=== PATIENT | female | born 1970 | race Caucasian/White ===

== ENCOUNTER 2016-06-21 10:48 | Day surgery (SDC) | payer OTHER ==
[2016-06-21] MEDS ORDERED: IV START KIT ONE (10:52)
[2016-06-21] MEDS ORDERED: LACTATED RINGERS 1,000 ML ONE (10:52)
[2016-06-21] MEDS ORDERED: CEFAZOLIN SODIUM 2 GRAM PREMIX 100 ML IV ONE (10:53)
[2016-06-21] MEDS ORDERED: CEFAZOLIN SODIUM 2 GRAM PREMIX 100 ML IV PRN (11:00)
[2016-06-21] MEDS ORDERED: SCOPOLAMINE 1.5 MG/72 HR 1 EACH PATCH TD ONE (12:44)
[2016-06-21] MEDS ORDERED: MIDAZOLAM HCL 1 MG/ML 2ML VIAL ONE (13:21)
[2016-06-21] MEDS ORDERED: FENTANYL 5 ML ONE (13:21)
[2016-06-21] MEDS ORDERED: ROCURONIUM BROMIDE 10 MG/ML DOSE IV ONE ×5 (13:22)
[2016-06-21] MEDS ORDERED: PROPOFOL 20 ML IV ONE (13:22)
[2016-06-21] MEDS ORDERED: LIDOCAINE 2% (PRES FREE) 5 ML VIAL ONE (13:22)
[2016-06-21] MEDS ORDERED: BUPIVACAINE 0.5% W/EPI SDV 30 ML VIAL ONE (14:10)
[2016-06-21] MEDS ORDERED: SODIUM CHLORIDE 0.9% 50 ML ONE (14:10)
[2016-06-21] MEDS ORDERED: IOPAMIDOL 300 (61%) 30 ML SDV ONE (14:10)
[2016-06-21] MEDS ORDERED: PROMETHAZINE HCL 25 MG/ML VIAL IM PRN (14:47)
[2016-06-21] MEDS ORDERED: ONDANSETRON 4 MG/2ML 2 ML VIAL IV PRN ×2 (14:47→16:39)
[2016-06-21] MEDS ORDERED: NALOXONE HCL 0.4 MG/ML VIAL IV PRN (14:47)
[2016-06-21] MEDS ORDERED: ATROPINE SULFATE 0.4 MG/1 ML VIAL IV PRN (14:47)
[2016-06-21] MEDS ORDERED: HYDRALAZINE HCL 20 MG/1 ML VIAL IV PRN (14:47)
[2016-06-21] MEDS ORDERED: FENTANYL 100 MCG/2 ML VIAL IV PRN (14:47)
[2016-06-21] MEDS ORDERED: HYDROMORPHONE HCL 1 MG/ML SYRINGE IV PRN (14:47)
[2016-06-21] MEDS ORDERED: LABETALOL HCL 5 MG/ML 20ML VIAL IV PRN (14:47)
[2016-06-21] MEDS ORDERED: MEPERIDINE 25 MG/ML SYRINGE IV PRN (14:47)
[2016-06-21] MEDS ORDERED: DEXAMETHASONE SOD PHOS 4 MG/1 ML VIAL ONE (14:53)
[2016-06-21] MEDS ORDERED: LACTATED RINGERS 1,000 ML IV SCH (15:00)
[2016-06-21] MEDS ORDERED: NEOSTIGMINE METHYLSULFATE 1 MG/ML DOSE ONE ×5 (15:49)
[2016-06-21] MEDS ORDERED: GLYCOPYRROLATE 0.2 MG/ML 1ML VIAL ONE (15:50)
--- NOTE | 2016-06-21 15:53 | RAD ---
OPERATIVE CHOLANGIOGRAM HISTORY: Laparoscopic cholecystectomy. TECHNIQUE: 19.9 seconds of fluoroscopy time was provided for Dr. Poon for purposes of procedural guidance. 4 fluoroscopic spot images were submitted for review. FINDINGS: Postprocedural change: Surgical clips along the cystic duct. Minor extravasation of contrast. Extrahepatic biliary tree: No persistent filling defect or gross stricturing. Normal passage of contrast into the duodenum. IMPRESSION: Fluoroscopy provided for procedural guidance, for laparoscopic cholecystectomy.
[2016-06-21] MEDS ORDERED: FENTANYL 100 MCG/2 ML VIAL ONE (16:26)
[2016-06-21] MEDS ORDERED: KETOROLAC TROMETHAMINE 30 MG/ML 1 ML VIAL IV PRN (16:39)
[2016-06-21] MEDS ORDERED: MORPHINE SULFATE 2 MG/ML SYRINGE IV PRN (16:39)
[2016-06-21] MEDS ORDERED: OXYCODONE HCL 5 MG TABLET PO PRN (16:39)
[2016-06-21] MEDS ORDERED: OXYCODONE HCL 5 MG TABLET ONE (17:56)
--- NOTE | 2016-06-22 10:19 | OP ---
Gem Grover [id number] DATE: 06/21/2016 PREOPERATIVE DIAGNOSIS: Chronic cholecystitis and cholelithiasis. POSTOPERATIVE DIAGNOSIS: Chronic cholecystitis and cholelithiasis. PROCEDURE: Laparoscopic cholecystectomy with intraoperative cholangiogram. SURGEON: Ed Poon M.D. REPORT CLERK: Gautam. ANESTHESIA: General endotracheal. INDICATION: This is a 45-year-old female who had symptoms of chronic biliary colic who presents for elective cholecystectomy. DESCRIPTION: With informed consent she was taken to the operating room where she was laid supine on the operating room table. General endotracheal anesthetic was administered. The abdomen was prepped and draped in the usual fashion. Local anesthetic was administered below the umbilicus. It appeared that there was a scar there. This was incised with a knife. Electrocautery was used to divide the subcutaneous fat. We dissected down to the fascia. This was opened with curve Hurst scissors. A suture of Surgilon replacing all fascial edges. A Rucker port was placed. A pneumoperitoneum was created. Local anesthetic was administered in the mid epigastrium and along the right lateral abdominal wall. Incisions were made and 5 mm ports were placed. The fundus of the gallbladder was grasped and retracted cephalad. The infundibulum was retracted laterally. We first identified the cystic duct, this was dissected free circumferentially. A clip was placed. The duct was partially transected. We were able to place a cholangiogram catheter. A cholangiogram was obtained showing flow of contrast into the duodenum without filling defect. Contrast was seen refluxing up into the hepatic ducts. The catheter was removed, two clips were placed on the cystic duct stump and completely transected. There was a cystic node that was actually difficult to dissect free. The cystic artery seemed to divide into an anterior and posterior branch behind this. Each of these were clipped with metal clips and transected. The gallbladder was then taken off the liver bed using electrocautery. Once it was placed within an Endocatch bag and removed through the infraumbilical port site. The right upper quadrant was irrigated. We appeared to have adequate hemostasis. The ports were removed and the pneumoperitoneum was evacuated. The infraumbilical fascial defect was closed with figure of eight sutures of 0 Surgilon. All other fascial defects were small. The skin was closed with subcuticular 4-0 Monocryl. Mastisol and Steri-Strips were placed. Sterile dressings were applied. She tolerated the procedure and was taken to the recovery room in stable condition. Note was made that needle, instrument, and lap counts were reported as correct at the time closure. JOB: [id number] CC: Dr. Belkis Dunne
--- NOTE | 2016-06-25 09:46 | SURGPATH ---
[facility] [address] [place] [id number] Patient Name: NAPOLEON PORRAS MR#: [id number] : 1970 Gender: F Specimen #: [id number] Collected: 06/21/2016 Received: 06/24/2016 Reported: 06/25/2016 Submitting Phys: LEIGHA RIVERA Copy To Phys: HAILEY DAY [facility] Clinical History / Pre-Operative Diagnosis: Cholelithiasis with chronic cholecystitis without obstruction Specimen Source / Surgical Procedure Performed: Gallbladder Interpretation: GALLBLADDER, CHOLECYSTECTOMY: - CHRONIC CHOLECYSTITIS WITH CHOLELITHIASIS AND CHOLESTEROLOSIS Electronically Signed Out Carlos Vaughn M.D. Gross Description: The specimen is received in formalin labeled with the patient's name and "gallbladder". The specimen consists of a 7.5 x 2.5 x 2.5 cm intact gallbladder. The mucosa is green and velvety with yellow speckling. There is a single brown ovoid 2.2 x 1.5 x 1.5 cm calculus. 1A life [employer] representative gallbladder including cystic duct ALEXIA Jacinto Microscopic Description: The sections show a thickened gallbladder wall with attenuated mucosa that shows downward budding into the muscularis propria. There are also collections of lipid-laden macrophages. 1: [id number] K80.45
== END 2016-06-21 19:18 | disposition home or self-care (01) ==
LOC: SDC 10:48
PROVIDERS: ATTEND Surgery
PROC: 0FT44ZZ Resection of Gallbladder, Percutaneous Endoscopic Approach (ICD-10-PCS; principal; 2016-06-21)
PROC: BF141ZZ Fluoroscopy of Gallbladder, Bile Ducts and Pancreatic Ducts using Low Osmolar Contrast (ICD-10-PCS; 2016-06-21)
DX: K80.10 Calculus of gallbladder with chronic cholecystitis without obstruction (principal)